=== PATIENT | female | born 1935 | race Hispanic/Latino ===

== ENCOUNTER 2017-07-30 11:55 | Emergency (ER) | payer MEDICARE ==
[~2017-07-30] VITALS: Ht 160 cm; Wt 72.6 kg
[2017-07-30 13:25] VITALS: BP 125/57
== END 2017-07-30 14:24 | disposition home or self-care (01) ==
LOC: ER 11:55
DX: B36.0 Pityriasis versicolor (principal); E11.9 Type 2 diabetes mellitus without complications
CPT/HCPCS: 99282

== ENCOUNTER 2017-12-12 16:41 | Emergency (ER) | payer OTHER, MEDICARE ==
[~2017-12-12] VITALS: Ht 160 cm; Wt 72.6 kg
[2017-12-12 18:16] LABS: BASOPHILS % 0.2 % (0.0-1.0); HEMOGLOBIN 13.8 g/dL (12.0-16.0); LYMPHOCYTES # (AUTO) 1.3 (1.0-3.2); LYMPHOCYTES % 10.7 % (18.0-39.1); MEAN CORPUSCULAR HEMOGLOBIN 30.5 pg (28-32); MEAN CORPUSCULAR HGB CONC 33.7 g/dL (31-35); MEAN CORPUSCULAR VOLUME 90.5 fL (81-99); MONOCYTES # (AUTO) 0.4 (0.2-0.8); MONOCYTES % 3.5 % (4.4-11.3); NEUTROPHILS # (AUTO) 10.4 (2.1-6.9); NEUTROPHILS % 85.2 % (38.7-80.0); PLATELET COUNT 281 x10e3/uL (140-360); RED BLOOD COUNT 4.53 x10e6/uL (3.6-5.1); RED CELL DISTRIBUTION WIDTH 12.7 % (11.7-14.4)
[2017-12-12 18:23] LABS: INR 1.04; PARTIAL THROMBOPLASTIN TIME 26.9 seconds (23.8-35.5); PROTHROMBIN TIME 12.8 seconds (11.9-14.5)
[2017-12-12 18:33] LABS: ALANINE AMINOTRANSFERASE 16 IU/L (0-55); ALBUMIN 3.9 g/dL (3.5-5.0); ALBUMIN/GLOBULIN RATIO 1.1 (0.8-2.0); ALKALINE PHOSPHATASE 111 IU/L (40-150); ANION GAP 15.1 mmol/L (8-16); BLOOD UREA NITROGEN 17 mg/dL (7-26); BUN/CREATININE RATIO 21 (6-25); CALCIUM 10.2 mg/dL (8.4-10.2); CARBON DIOXIDE 24 mmol/L (22-29); CHLORIDE 104 mmol/L (98-107); CREATINE KINASE 79 IU/L (29-168); EST GLOMERULAR FILTRATION RATE > 60 ML/MIN (60-); GLUCOSE 182 mg/dL (74-118); POTASSIUM 4.1 mmol/L (3.5-5.1); SODIUM 139 mmol/L (136-145)
--- NOTE | 2017-12-12 18:37 | Diagnostic Imaging Report ---
PROCEDURE: A single AP view of the chest. COMPARISON: None. INDICATIONS: dizziness FINDINGS: Lines/tubes: None. Lungs: The lungs are moderately inflated. Bibasilar atelectasis. There is no evidence of pneumonia or pulmonary edema. Pleura: There is no pleural effusion or pneumothorax. Heart and mediastinum: The heart and the mediastinum are unremarkable. Bones: No acute bony abnormality. IMPRESSION: No acute cardiopulmonary disease. Dictated by: Niko Bautista M.D. on 12/12/2017 at 18:38 Electronically approved by: Niko Bautista M.D. on 12/12/2017 at 18:38
[2017-12-12 18:43] LABS: BILIRUBIN,URINE NEGATIVE (NEGATIVE); CLARITY,URINE TURBID (CLEAR); COLOR,URINE YELLOW (YELLOW); KETONES,URINE NEGATIVE (NEGATIVE); LEUKOCYTE ESTERASE ,URINE NEGATIVE (NEGATIVE); NITRITE,URINE POSITIVE (NEGATIVE); PROTEIN,URINE DIPSTICK NEGATIVE (NEGATIVE); URINE UROBILINOGEN 0.2 mg/dL (0.2 - 1)
--- NOTE | 2017-12-12 18:51 | Diagnostic Imaging Report ---
History:Strokelike symptoms Comparison studies:None Technique: Axial images were obtained from the skull base to the vertex. Coronal and sagittal images reconstructed from the axial data. Intravenous contrast: None Findings: Scalp/skull: No abnormalities. Extra-axial spaces: No masses. No fluid collections. Brain sulci: Mildly prominent. Ventricles: Mild compensatory dilatation. No hydrocephalus. Parenchyma: Confluent and scattered hypodensities in the supratentorial white matter are small vessel ischemic changes. No masses, hemorrhage, acute or chronic cortical vascular insults. Sellar/suprasellar region: No abnormalities. Craniocervical junction: Patent foramen magnum. No Chiari one malformation. Incidental findings: Atherosclerotic calcifications in the carotid siphons . Impression: No acute abnormalities. Chronic findings: 1. Mild generalized volume loss. 2. Mild supratentorial white matter small vessel ischemic changes. A preliminary report was given by Neuroradiology fellow Dr. Ch at 6:50 PM on 12/12/2017. I have reviewed the study and agree with the findings in the preliminary report. Signed by: Dr. Irasema Berg M.D. on 12/12/2017 7:49 PM
[2017-12-12 18:58] LABS: RBC,URINE 0-5 /HPF (0-5)
[2017-12-12 18:59] LABS: BACTERIA,URINE MANY /HPF; CYSTINE CRYSTALS,URINE FEW; EPITHELIAL CELLS,URINE RARE /LPF; MUCUS,URINE MODERATE (RARE)
[2017-12-12] MEDS ORDERED: METFORMIN HCL500 M2 PO (20:14)
[2017-12-12] MEDS ORDERED: MECLIZINE HCL12.5 MG PO (20:14)
[2017-12-12] MEDS ORDERED: LEVOTHYROXINE50 MCG PO (20:14)
[2017-12-12] MEDS ORDERED: ASPIRIN EC81 MG PO (20:14)
[2017-12-12] MEDS ORDERED: D3-5050000 UNIT PO (20:14)
[2017-12-12] MEDS ORDERED: PRAVASTATIN SOD20 MG PO (20:14)
[2017-12-12] MEDS ORDERED: NAPROXEN250 MG PO (20:14)
[2017-12-12] MEDS ORDERED: CEFTRIAXONE SOD 1 GM VIAL IV ONE (21:00)
[2017-12-12 21:42] VITALS: BP 146/73
[2017-12-12] MEDS ORDERED: LEVAQUIN250 MG PO (21:46)
== END 2017-12-12 22:11 | disposition home or self-care (01) ==
LOC: ER 16:41
DX: R42 Dizziness and giddiness (principal); N30.91 Cystitis, unspecified with hematuria
CPT/HCPCS: 36415; 70450; 71045; 80053; 81001; 82550; 82553; 84484; 85025; 85610; 85730; 93005; 99284; J0696

== ENCOUNTER 2020-02-08 15:36 | Inpatient (IN) | payer MEDICARE, OTHER ==
[~2020-02-08] VITALS: Ht 160 cm; Wt 72.6 kg
--- NOTE | 2020-02-08 16:42 | Emergency Department Note ---
History of Present Illnes History of Present Illness Chief Complaint: Respiratory History of Present Illness This is a 84 year old female with one week h/o of ST, abd, diarrheal illness of 10 days duration denies fever. Historian: Patient Arrival Mode: Car Past Medical/Family History Physician Review I have reviewed the patient's past medical and family history. Any updates have been documented here. Past Medical History Recent Fever: No Clinical Suspicion of Infectio: No New/Unexplained Change in Ment: No Past Medical History: Hypertension, Diabetes, Hypothyroidism, Hyperlipedemia Other Medical History: HIGH CHOLESTEROL Past Surgical History: Appendectomy, Knee Replacement Family History Family history of heart diseas: No Other Last Tetanus: UTD Physical Exam Related Data Allergies: Coded Allergies: No Known Allergies (Unverified , 12/12/17) Triage Vital Signs Vital Signs Date Time Temp Pulse Resp B/P (MAP) Pulse Ox O2 Delivery O2 Flow Rate FiO2 02/08/20 16:32 98.5 74 129/72 93 Physical Exam CONSTITUTIONAL Constitutional: Present ill appearing HENT HENT: Present normocephalic, Present atraumatic, Present oropharynx clear/moist, Present nose normal HENT L/R: Present left ext ear normal, Present right ext ear normal EYES Eyes: Reports PERRL, Reports conjunctivae normal NECK Neck: Present ROM normal PULMONARY Pulmonary: Present effort normal, Present breath sounds normal CARDIOVASCULAR Cardiovascular: Present regular rhythm, Present heart sounds normal, Present capillary refill normal, Present normal rate GASTROINTESTINAL Abdominal: Present soft, Present nontender, Present bowel sounds normal GENITOURINARY Genitourinary: Present exam deferred SKIN Skin: Present warm, Present dry MUSCULOSKELETAL Musculoskeletal: Present ROM normal NEUROLOGICAL Neurological: Present alert, Present oriented x 3, Present no gross motor or sensory deficits PSYCHOLOGICAL Psychological: Present mood/affect normal, Present judgement normal Results Imaging Imaging results reviewed: Yes Impressions [place] [address] Patient Name: KATIE AQUINO MR #: [id number] : 1935 Age/Sex: 84/F Req #: [id number] Adm Physician: Ordered by: SILVA PACHECO DO Report #: [id number] Location: ER Room/Bed: ___ Procedure: [id number] CT/CT CHEST WO Exam Date: 02/08/20 Exam Time: 1639 REPORT STATUS: Signed EXAM: CT Chest, Abdomen and Pelvis WITHOUT contrast INDICATION: Chest pain. Dyspnea. Abdominal pain. COMPARISON: None. TECHNIQUE: Chest, abdomen and pelvis were scanned utilizing a multidetector helical scanner from the lung apex to the pubic symphysis without administration of IV contrast. Absence of intravenous contrast decreases sensitivity for detection of focal lesions and vascular pathology. Coronal and sagittal reformations were obtained. Routine protocol was performed. IV CONTRAST: None. ORAL CONTRAST: Water RADIATION DOSE: Total DLP: 948.14 mGy*cm Estimated effective dose: (DLP x 0.015 x size factor) mSv COMPLICATIONS: None FINDINGS: LINES and TUBES: None. LUNGS AND AIRWAYS: Patchy groundglass density in the inferior right upper lobe, right middle lobe and bilateral lung bases with PLEURA: The pleural spaces are clear. HEART AND MEDIASTINUM: The thyroid gland is normal. No mediastinal, hilar or axillary lymphadenopathy. The heart is normal in size.. There is no pericardial effusion. There are mild atherosclerotic calcifications in the aorta and coronary arteries. HEPATOBILIARY: No focal hepatic lesions. No biliary ductal dilation. GALLBLADDER: Not visualized. SPLEEN: No splenomegaly. PANCREAS: No focal masses or ductal dilatation. ADRENALS: No adrenal nodules KIDNEYS/URETERS: No hydronephrosis. No cystic or solid mass lesions. No stones. GI TRACT: No abnormal distention, wall thickening, or evidence of bowel obstruction. There are diverticula within the colon without evidence of diverticulitis. Appendix is normal. PELVIC ORGANS/BLADDER: Heterogeneity of the uterus may be related to the presence of small leiomyomata with consultations of the uterine arteries. Broad-based right sided diverticulum of the urinary bladder. Mild diffuse wall thickening of the urinary bladder may be part related to underdistention. LYMPH NODES: No lymphadenopathy. VESSELS: There is mild atherosclerotic disease in the aorta and major arterial branches. PERITONEUM / RETROPERITONEUM: No free air or fluid. Increased density in the root of the mesentery fat, small associated with mildly prominent mesenteric lymph nodes, suggestive of "gab mesentery". BONES: There are degenerative changes in the thoracolumbar spine. SOFT TISSUES: Unremarkable. IMPRESSION: 1. Patchy groundglass densities in the lower lobes, and to a lesser degree right upper and middle lobes suggestive of multifocal pneumonitis. 2. Mild gab mesentery is a nonspecific finding, however, be associated with infectious, inflammatory and neoplastic etiologies. 3. Diverticulosis coli without acute diverticulitis. Signed by: Dr. Sandy Pineda M.D. on 02/08/2020 7:10 PM Dictated By: JASMYNE PINEDA MD, MD 09 Transcribed By: ROSETTA on 02/08/201909 COPY TO: SILVA PACHECO DO~ Assessment & Plan Last Vital Signs Date Time Temp Pulse Resp B/P (MAP) Pulse Ox O2 Delivery O2 Flow Rate FiO2 02/08/20 16:32 98.5 74 129/72 93 Home Meds Reported Medications Levofloxacin (LEVAQUIN) 250 Mg Tablet, 250 MG PO DAILY, #30 TAB 12/12/17 Cholecalciferol (Vitamin D3) (D3-50) 50,000 Unit Capsule, 41613 UNITS PO WEEKLY 12/12/17 Metformin Hcl (METFORMIN HCL ER) 500 Mg Tab.er.24, 750 MG PO DAILY, #60 TAB 12/12/17 Aspirin (ASPIRIN EC) 81 Mg Tablet.dr, 81 MG PO DAILY, #30 TAB 12/12/17 Levothyroxine Sodium (LEVOTHYROXINE SODIUM) 50 Mcg Tablet, 25 MCG PO DAILY, #30 TAB 18 Naproxen (NAPROXEN) 250 Mg Tablet, 500 MG PO Q12H PRN for PAIN, TAB 12/12/17 Meclizine Hcl (MECLIZINE HCL) 12.5 Mg Tablet, 12.5 MG PO TID PRN for DIZZINESS, TAB 12/12/17 Pravastatin Sodium (PRAVASTATIN SODIUM) 20 Mg Tablet, 20 MG PO DAILY 12/12/17 SILVA PACHECO DO Feb 08, 2020 16:42
[2020-02-08 17:10] LABS: CLARITY,URINE SL CLOUDY (CLEAR); COLOR,URINE ORANGE (YELLOW)
[2020-02-08 17:11] LABS: BILIRUBIN,URINE SMALL (NEGATIVE); KETONES,URINE 1+ (NEGATIVE); LEUKOCYTE ESTERASE ,URINE LARGE (NEGATIVE); NITRITE,URINE NEGATIVE (NEGATIVE); PROTEIN,URINE DIPSTICK 2+ (NEGATIVE); URINE UROBILINOGEN 4 mg/dL (0.2 - 1)
[2020-02-08 17:22] LABS: BACTERIA,URINE MANY /HPF; EPITHELIAL CELLS,URINE MODERATE /LPF; RENAL EPITHELIAL CELLS,URINE FEW
--- NOTE | 2020-02-08 19:13 | Diagnostic Imaging Report ---
EXAM: CT Chest, Abdomen and Pelvis WITHOUT contrast INDICATION: Chest pain. Dyspnea. Abdominal pain. COMPARISON: None. TECHNIQUE: Chest, abdomen and pelvis were scanned utilizing a multidetector helical scanner from the lung apex to the pubic symphysis without administration of IV contrast. Absence of intravenous contrast decreases sensitivity for detection of focal lesions and vascular pathology. Coronal and sagittal reformations were obtained. Routine protocol was performed. IV CONTRAST: None. ORAL CONTRAST: Water RADIATION DOSE: Total DLP: 948.14 mGy*cm Estimated effective dose: (DLP x 0.015 x size factor) mSv COMPLICATIONS: None FINDINGS: LINES and TUBES: None. LUNGS AND AIRWAYS: Patchy groundglass density in the inferior right upper lobe, right middle lobe and bilateral lung bases with PLEURA: The pleural spaces are clear. HEART AND MEDIASTINUM: The thyroid gland is normal. No mediastinal, hilar or axillary lymphadenopathy. The heart is normal in size.. There is no pericardial effusion. There are mild atherosclerotic calcifications in the aorta and coronary arteries. HEPATOBILIARY: No focal hepatic lesions. No biliary ductal dilation. GALLBLADDER: Not visualized. SPLEEN: No splenomegaly. PANCREAS: No focal masses or ductal dilatation. ADRENALS: No adrenal nodules KIDNEYS/URETERS: No hydronephrosis. No cystic or solid mass lesions. No stones. GI TRACT: No abnormal distention, wall thickening, or evidence of bowel obstruction. There are diverticula within the colon without evidence of diverticulitis. Appendix is normal. PELVIC ORGANS/BLADDER: Heterogeneity of the uterus may be related to the presence of small leiomyomata with consultations of the uterine arteries. Broad-based right sided diverticulum of the urinary bladder. Mild diffuse wall thickening of the urinary bladder may be part related to underdistention. LYMPH NODES: No lymphadenopathy. VESSELS: There is mild atherosclerotic disease in the aorta and major arterial branches. PERITONEUM / RETROPERITONEUM: No free air or fluid. Increased density in the root of the mesentery fat, small associated with mildly prominent mesenteric lymph nodes, suggestive of "gab mesentery". BONES: There are degenerative changes in the thoracolumbar spine. SOFT TISSUES: Unremarkable. IMPRESSION: 1. Patchy groundglass densities in the lower lobes, and to a lesser degree right upper and middle lobes suggestive of multifocal pneumonitis. 2. Mild gab mesentery is a nonspecific finding, however, be associated with infectious, inflammatory and neoplastic etiologies. 3. Diverticulosis coli without acute diverticulitis. Signed by: Dr. Sandy Pineda M.D. on 02/08/2020 7:10 PM
[2020-02-08 21:27] LABS: BASOPHILS % 0.3 % (0.0-1.0); EOSINOPHILS % 0.2 % (0.0-6.0); HEMATOCRIT 40.3 % (34.2-44.1); HEMOGLOBIN 13.3 g/dL (12.0-16.0); LYMPHOCYTES % 8.7 % (18.0-39.1); MEAN CORPUSCULAR HEMOGLOBIN 29.7 pg (28-32); MONOCYTES # (AUTO) 0.5 (0.2-0.8); MONOCYTES % 4.3 % (4.4-11.3); NEUTROPHILS # (AUTO) 9.5 (2.1-6.9); NEUTROPHILS % 86.2 % (38.7-80.0); PLATELET COUNT 257 x10e3/uL (140-360); RED BLOOD COUNT 4.48 x10e6/uL (3.6-5.1); RED CELL DISTRIBUTION WIDTH 13.1 % (11.7-14.4)
[2020-02-08 21:44] LABS: ALANINE AMINOTRANSFERASE 16 IU/L (0-55); ALBUMIN 3.3 g/dL (3.5-5.0); ALBUMIN/GLOBULIN RATIO 0.8 (0.8-2.0); ALKALINE PHOSPHATASE 127 IU/L (40-150); ANION GAP 14.1 mmol/L (8-16); BLOOD UREA NITROGEN 16 mg/dL (7-26); BUN/CREATININE RATIO 14 (6-25); CALCIUM 9.6 mg/dL (8.4-10.2); CARBON DIOXIDE 24 mmol/L (22-29); CHLORIDE 98 mmol/L (98-107); CREATINE KINASE 27 IU/L (29-168); CREATININE, SERUM 1.14 mg/dL (0.57-1.11); EST GLOMERULAR FILTRATION RATE 45 ML/MIN (60-); GLUCOSE 268 mg/dL (74-118); LIPASE 21 U/L (8-78); POTASSIUM 4.1 mmol/L (3.5-5.1); SODIUM 132 mmol/L (136-145)
[2020-02-08] MEDS ORDERED: ZOLPIDEM TARTRATE 5 MG TAB PO PRN (22:15)
[2020-02-08] MEDS ORDERED: ALBUTEROL SULFATE HFA 8GM INHALATION AEROSOL INH PRN (22:15)
[2020-02-08] MEDS ORDERED: ACETAMINOPHEN 325 MG TAB PO PRN (22:15)
[2020-02-08] MEDS ORDERED: DEXAMETHASONE SOD PHOS 10 MG/1 ML VIAL IV ONE (22:15)
[2020-02-08] MEDS ORDERED: ONDANSETRON HCL INJ 2MG/ML 2ML 2 MG/ML VIAL IV PRN (22:15)
[2020-02-08] MEDS ORDERED: SODIUM CHLORIDE 0.9% 1000ML 1,000 ML IV ONE (22:15)
[2020-02-08] MEDS ORDERED: DEXTROSE 50% SYRINGE 50 ML IV PRN (22:30)
[2020-02-08] MEDS: CEFTRIAXONE SOD 1 GM/NS 50 ML 50 ML IV SCH (22:44)
[2020-02-08 23:20] VITALS: BP 121/48
--- NOTE | 2020-02-08 23:20 | NUR ---
patient is a new admit that arrived via wheelchair. patient is awake and talking. patient has been transferred into the bed. bed is in the lowest position and call light is within reach. will continue to monitor patient.
--- NOTE | 2020-02-08 23:30 | NUR ---
patient blood sugar is 253. MD notified. received new order for one time dose of 5 units humalog.
[2020-02-08] MEDS ORDERED: SODIUM CHLORIDE 0.9% 250ML 250 ML ONE (23:43)
[2020-02-09] VITALS (9 sets, daily range): BP systolic 94–200; BP diastolic 34–112
[2020-02-09] MEDS ORDERED: INSULIN LISPRO 100 UNIT/1 ML 3ML VIAL SQ ONE
[2020-02-09] MEDS: AZITHROMYCIN 500MG/NS 250 ML 250 ML IV SCH ×2 (00:18→23:15)
--- NOTE | 2020-02-09 02:32 | Consultation ---
DATE OF CONSULTATION: Pulmonary Critical Care Consultation CHIEF COMPLAINT: Fever, nausea, and dyspnea. HISTORY OF PRESENT ILLNESS: The patient is an 84-year-old woman. She reports fever and nausea for 8 days. She had a small amount of diarrhea, but no vomiting. She reports some shortness of breath and an occasional cough. She also has some fevers. PAST SURGICAL HISTORY: Noncontributory. PAST MEDICAL HISTORY: 1. Hypothyroidism. 2. Diabetes, not requiring insulin. 3. The patient denies any asthma or COPD. 4. No prior heart disease. ALLERGIES: NO KNOWN DRUG ALLERGIES. SOCIAL HISTORY: The patient is not a smoker or drinker. FAMILY HISTORY: Noncontributory. REVIEW OF SYSTEMS: The patient is reporting fevers. She has some malaise. She reports some dyspnea and occasional cough. She also reports some nausea. She has no vomiting. She has diarrhea. She has no leg edema. She does not complain of any neurological abnormalities. PHYSICAL EXAMINATION: VITAL SIGNS: Blood pressure is 158/61, pulse is 70, and saturation is 95%. She is afebrile. HEENT: Shows no facial swelling or erythema. CARDIAC: Reveals regular rate and rhythm with normal S1 and S2. LUNGS: Auscultation of lungs reveals rhonchorous breath sounds bilaterally. There is no wheezing. ABDOMEN: Soft and nontender. There is no rebound or guarding. EXTREMITIES: Show no leg edema or calf tenderness. There is no cyanosis or clubbing. SKIN: Shows no rashes. NEUROLOGICAL: Shows no focal abnormalities. RADIOGRAPHIC DATA: CT scan of the chest shows patchy ground-glass densities in the lower lobes. CT scan of the abdomen shows some abnormalities in the mesentery of unclear etiology as well as some diverticulosis. IMPRESSION: 1. Viral pneumonia and coronavirus disease 2019 infection. 2. Diabetes. 3. Nausea and abdominal distention. 4. Acute kidney injury. PLAN: 1. IV fluids. 2. Dexamethasone. 3. Azithromycin and Rocephin. 4. Tylenol as needed. 5. Protonix. 6. GI evaluation. 7. Repeat BUN and creatinine and electrolytes tomorrow. MD ADI Romero/FLASH /[id number]
[2020-02-09 05:46] LABS: BASOPHILS % 0.1 % (0.0-1.0); HEMATOCRIT 38.9 % (34.2-44.1); HEMOGLOBIN 12.7 g/dL (12.0-16.0); LYMPHOCYTES # (AUTO) 0.7 (1.0-3.2); LYMPHOCYTES % 6.3 % (18.0-39.1); MEAN CORPUSCULAR HEMOGLOBIN 29.7 pg (28-32); MEAN CORPUSCULAR HGB CONC 32.6 g/dL (31-35); MEAN CORPUSCULAR VOLUME 91.1 fL (81-99); MONOCYTES # (AUTO) 0.1 (0.2-0.8); MONOCYTES % 1.2 % (4.4-11.3); NEUTROPHILS # (AUTO) 9.9 (2.1-6.9); PLATELET COUNT 262 x10e3/uL (140-360); RED BLOOD COUNT 4.27 x10e6/uL (3.6-5.1); RED CELL DISTRIBUTION WIDTH 12.8 % (11.7-14.4)
[2020-02-09 05:52] LABS: ALBUMIN/GLOBULIN RATIO 0.8 (0.8-2.0); ANION GAP 12.6 mmol/L (8-16); CALCIUM 9.1 mg/dL (8.4-10.2); CREATININE, SERUM 1.04 mg/dL (0.57-1.11); POTASSIUM 4.6 mmol/L (3.5-5.1)
[2020-02-09] MEDS ORDERED: INSULIN REGULAR, HUMAN 100 UNIT/1 ML 3ML VIAL SQ SCH (07:30)
[2020-02-09] MEDS ORDERED: DEXAMETHASONE SOD PHOS 10 MG/1 ML VIAL IV ONE (09:00)
[2020-02-09] MEDS: LEVOTHYROXINE SODIUM 50 MCG TAB PO SCH (10:05)
[2020-02-09] MEDS: PRAVASTATIN 20 MG TAB PO SCH (10:05)
[2020-02-09] MEDS: ASPIRIN 81 MG ENTERIC COATED PO SCH (10:05)
[2020-02-09] MEDS: FAMOTIDINE 20 MG/2 ML VIAL IV SCH ×2 (10:05→16:28)
[2020-02-09 11:07] LABS: EOSINOPHILS % (MANUAL) 1 % (0-7); LYMPHOCYTES % (MANUAL) 9 % (19-48); MONOCYTES % (MANUAL) 1 % (3.4-9.0); NEUTROPHILS % (MANUAL) 88 % (40-74); PLATELET ESTIMATE ADEQUATE; PLATELET MORPHOLOGY COMMENT NORMAL; RBC MORPHOLOGY COMMENT NORMAL
[2020-02-09] MEDS: INSULIN REGULAR, HUMAN 100 UNIT/1 ML 3ML VIAL SQ SCH ×3 (12:16→21:21)
[2020-02-09] MEDS ORDERED: ENOXAPARIN 30 MG/0.3 ML SYR SC SCH (17:00)
--- NOTE | 2020-02-09 18:29 | Progress Note ---
DATE: SUBJECTIVE: The patient feels better. She is having less abdominal pain. She ate something. She still has some pressure in her chest. PHYSICAL EXAMINATION: VITAL SIGNS: Blood pressure is 108/50, saturation is 95%, pulse is 59. HEENT: Shows no facial swelling or erythema. CARDIAC: Reveals regular rate and rhythm with a normal S1, S2. LUNGS: Auscultation of lungs reveals rhonchorous breath sounds bilaterally. There is no wheezing. ABDOMEN: Soft and nontender. There is no rebound or guarding. EXTREMITIES: Shows no leg edema or calf tenderness. There is no cyanosis or clubbing. SKIN: Shows no rashes. LABORATORY DATA: BUN to creatinine ratio is normal. Other electrolytes within normal limits. Sodium is 137 and the glucose is 276. The albumin is 3. RADIOGRAPHIC DATA: CT of the chest shows bilateral infiltrates, suggestive of pneumonia. IMPRESSION: 1. Viral pneumonia and COVID-19 infection. 2. Diabetes. 3. Acute kidney injury. 4. Nausea. 5. Abdominal distention. PLAN: 1. Increase insulin to control blood sugars. 2. Continue antibiotics. 3. Tylenol as needed. 4. Judicious use of IV fluids. Doe Kearney MD [facility]/MODL /[id number]
--- NOTE | 2020-02-09 20:00 | NUR ---
ROUTINE VITAL CHECK PATIENT SEEN AWAKE RESTING, DIALYSIS CURRENTLY STARTED, RIGHT CHEST DIALYSIS IJ ACCESSED FOR DIALYSIS PT TOLERATING WELL, SITE TENDER TO TOUCH, DRSG C/D/I, REPORT BLOOD PRESSURE 207/112, ASSESSED PATIENT BLOOD PRESSURE CURRENTLY GRADUALLY DECREASING, CURRENTLY SBP 170, WILL CONTINUE TO MONITOR
--- NOTE | 2020-02-09 20:05 | History and Physical ---
PRIMARY CARE PHYSICIAN: None. CHIEF COMPLAINT: Shortness of breath, abdominal pain, and dizziness. HISTORY OF PRESENT ILLNESS: This is an 84-year-old female, presented to the ER with complaints of nausea, vomiting, shortness of breath, cough for the past few days. She denies any chest pain, hemoptysis, dysuria, diarrhea. History is limited due to language barrier and reports is feeling fine now. In the ER, CT abdomen and pelvis showed patchy ground-glass densities in the right upper and middle lobes, suggestive of multifocal pneumonitis, diverticulosis without acute diverticulitis, and mild gab mesentery is a nonspecific finding. However, can be associated with infectious or inflammatory and neoplastic etiology. CTA chest, no PE. She is admitted for further evaluation. PAST MEDICAL HISTORY: 1. Diabetes. 2. Hypothyroidism. SOCIAL HISTORY: Denies any tobacco, alcohol, or illicit drug use. FAMILY HISTORY: Unknown. SURGICAL HISTORY: She had cholecystectomy and bilateral knee surgery. ALLERGIES: NO KNOWN DRUG ALLERGIES. REVIEW OF SYSTEMS: Twelve-system reviewed and negative except that noted in HPI. PHYSICAL EXAMINATION: VITAL SIGNS: Temperature 98.2, pulse is 56, respirations 16, blood pressure 109/78, pulse ox 93% on room air. GENERAL: No acute distress. HEENT: Normocephalic, atraumatic. NECK: Supple. LUNGS: With decreased breath sounds. CARDIOVASCULAR: Regular rate and rhythm. GI: Soft, nontender, obese. NEUROLOGIC: Alert, awake, and oriented x3. MUSCULOSKELETAL: Moves all extremities. SKIN: Dry. PSYCH: Calm. LABORATORY DATA: WBC 10.71, hemoglobin 4.7, hematocrit 38.9, platelets 262. Sodium 137, potassium 4.6. BUN is 14, creatinine 1.14 now 1.01, estimated GFR is 50. AST 21, ALT 15. BNP is 59.5. Urine, orange with large leukocyte esterase, WBCs, and bacteria. COVID PCR is positive. CT chest, abdomen and pelvis shows patchy ground-glass densities, suggestive of multifocal pneumonia, mild gab mesentery, advanced specific finding, and diverticulosis without acute diverticulitis. IMPRESSION AND PLAN: 1. Acute respiratory distress due to coronavirus disease 2019. She is started on Rocephin, azithromycin, and inhaler as needed. 2. Acute kidney injury. Creatinine improved with IV fluid condition. Now tolerating p.o. 3. Diabetes. We will continue with sliding scale insulin. 4. Hypothyroidism. We will resume home levothyroxine at 25 mcg p.o. daily. 5. Deep venous thrombosis prophylaxis. Lovenox. Plan is to continue IV antibiotics and supportive therapy. Further recommendations per ID and mechanical intern. Dictated by KEITH Agustin Florentin Ash MD [facility]/MODL /[id number]
[2020-02-09] MEDS ORDERED: INSULIN GLARGINE 100 UNITS/ML VIAL SQ SCH (21:00)
[2020-02-09] MEDS: CEFTRIAXONE SOD 1 GM/NS 50 ML 50 ML IV SCH (21:45)
--- NOTE | 2020-02-09 22:30 | NUR ---
PATIENT GIVEN ORAL HYPERTENSION MEDICATION, DIALYSIS COMPLETED 3 LITERS REMOVED VIA RIGHT CVC, PATIENT BLOOD PRESSURE REMAIN HIGH SBP 160'S REPORT LAST VITALS TAKEN BY TELEPHOTO ENGINEER, PATIENT LYING COMFORTABLY IN BED IN DISTRESS NOTED, WILL CONTINUE TO MONITOR
--- NOTE | 2020-02-09 22:45 | Consultation ---
DATE OF CONSULTATION: REASON FOR CONSULTATION: Fever, shortness of breath, nausea. HISTORY OF PRESENT ILLNESS: This is an 84-year-old female, who has been sick for 8 days, not feeling well, a little bit feverish, some shortness of breath, some cough. The patient came to the emergency room because she was not feeling well. There was also some nausea. The patient came, her COVID-19 came back positive. She is being admitted. LABORATORY DATA: White count of 10.7, hemoglobin 12, hematocrit 38. Sodium 132, potassium 4.1, creatinine 1.14, came down at 1.04, glucose of 276. PHYSICAL EXAMINATION: GENERAL: Currently alert, oriented, does not seem to be in acute distress. VITAL SIGNS: Stable. Currently afebrile. The patient is 96% on nasal cannula. HEENT: She is not icteric. NECK: Supple. CHEST: Crackles bilateral. COR: S1 and S2. ABDOMEN: Soft. IMPRESSION AND PLAN: Coronavirus disease-19, clinically seems to be stable. Agree with Rocephin and azithromycin. I do not think she is ready for dexamethasone, she is not hypoxemic. Low dose of anticoagulation, but it could be changed to oral antibiotic and discharge soon. We will discuss with the medical team. MD KARYN Siegel/FLASH /[id number]
[2020-02-10] VITALS: BP 121/51
[2020-02-10 04:00] VITALS: BP 133/51
[2020-02-10 05:06] LABS: BASOPHILS % 0.2 % (0.0-1.0); HEMATOCRIT 36.2 % (34.2-44.1); HEMOGLOBIN 11.9 g/dL (12.0-16.0); LYMPHOCYTES % 8.4 % (18.0-39.1); MEAN CORPUSCULAR HEMOGLOBIN 29.7 pg (28-32); MEAN CORPUSCULAR HGB CONC 32.9 g/dL (31-35); MEAN CORPUSCULAR VOLUME 90.3 fL (81-99); MONOCYTES # (AUTO) 0.6 (0.2-0.8); MONOCYTES % 4.9 % (4.4-11.3); NEUTROPHILS # (AUTO) 10.6 (2.1-6.9); NEUTROPHILS % 86.1 % (38.7-80.0); PLATELET COUNT 301 x10e3/uL (140-360); RED BLOOD COUNT 4.01 x10e6/uL (3.6-5.1); RED CELL DISTRIBUTION WIDTH 12.5 % (11.7-14.4)
[2020-02-10 05:32] LABS: ALANINE AMINOTRANSFERASE 15 IU/L (0-55); ALBUMIN/GLOBULIN RATIO 0.8 (0.8-2.0); ALKALINE PHOSPHATASE 116 IU/L (40-150); ANION GAP 13.1 mmol/L (8-16); BLOOD UREA NITROGEN 17 mg/dL (7-26); BUN/CREATININE RATIO 20 (6-25); CALCIUM 9.6 mg/dL (8.4-10.2); CARBON DIOXIDE 22 mmol/L (22-29); CHLORIDE 106 mmol/L (98-107); CREATININE, SERUM 0.85 mg/dL (0.57-1.11); EST GLOMERULAR FILTRATION RATE > 60 ML/MIN (60-); GLUCOSE 232 mg/dL (74-118); POTASSIUM 4.1 mmol/L (3.5-5.1); SODIUM 137 mmol/L (136-145)
[2020-02-10 06:07] VITALS: BP 133/51
--- NOTE | 2020-02-10 07:00 | NUR ---
RECEIVED SHIFT REPORT FROM OFF GOING NIGHT NURSE. PATIENT IN STABLE CONDITION, NO S/S OF DISTRESS NOTED. NO PAIN VOICED. TELEMETRY APPLIED. IV SITE ASYMPTOMATIC AND PATENT TRANSPARENT DRESSING APPLIED C/D/I. BED IN LOWEST POSITION AND LOCKED. CALL LIGHT WITHIN REACH.
--- NOTE | 2020-02-10 07:24 | NUR ---
BSSR GIVEN TO DAYSHIFT RN, UPDATE WITH PLAN OF CARE
[2020-02-10] MEDS: INSULIN REGULAR, HUMAN 100 UNIT/1 ML 3ML VIAL SQ SCH ×2 (07:30→11:30)
[2020-02-10 08:47] VITALS: BP 153/80
[2020-02-10 08:58] VITALS: BP 153/80
[2020-02-10] MEDS: ASPIRIN 81 MG ENTERIC COATED PO SCH (09:00)
[2020-02-10] MEDS: PRAVASTATIN 20 MG TAB PO SCH (09:00)
[2020-02-10] MEDS: LEVOTHYROXINE SODIUM 50 MCG TAB PO SCH (09:00)
[2020-02-10] MEDS: FAMOTIDINE 20 MG/2 ML VIAL IV SCH (09:00)
--- NOTE | 2020-02-10 10:36 | Diagnostic Imaging Report ---
EXAMINATION: CHEST SINGLE (PORTABLE) INDICATION: Viral pneumonia COMPARISON: Chest CT 02/08/2020, chest radiograph 02/08/2020 FINDINGS: LINES/TUBES:None LUNGS:The lungs are well-inflated. Unchanged right greater than left hazy airspace opacities. PLEURA:No pleural effusion or pneumothorax. MEDIASTINUM:The cardiomediastinal silhouette appears unchanged in size and shape. BONES/SOFT TISSUES:No acute osseous injury. ABDOMEN:No free air under the diaphragm. IMPRESSION: Unchanged right greater than left lower lung hazy airspace opacities consistent with history of viral pneumonia. Signed by: Galina Espino MD on 02/10/2020 10:32 AM
[2020-02-10 11:12] VITALS: BP 145/58
--- NOTE | 2020-02-10 11:38 | Progress Note ---
DATE: SUBJECTIVE: Discussed with Dr. Houston in detail. Discussed with the nurse. The patient is seen with the nurse in her room. REVIEW OF SYSTEMS: Discussed with the daughter over the phone with a speaker on. No new complaints. The patient is doing well. The patient is off oxygen during my visit and saturation is about 92% to 97%. PHYSICAL EXAMINATION: VITAL SIGNS: Temperature 97.9, pulse 48, respiration 19, and blood pressure 152/80. GENERAL: Alert and oriented, sitting in a chair, no acute distress, off oxygen currently. CV: S1 and S2. CHEST: Equal expansion. Decreased breath sounds. No acute distress. ABDOMEN: Soft and nontender. No distention. HEENT: Moist. No pallor. No JVD. EXTREMITIES: Moves all. No acute distress. MEDICATIONS: Medication list reviewed and from ID point of view, the patient is on Zithromax, Rocephin, and Lovenox. LABORATORY STUDIES: White count of 12.36, hemoglobin 11.9, and platelet 305. Sodium 138, potassium 4.1, and creatinine 0.85. Serology; coronavirus PCR detected on 02/07. IMAGING: Chest x-ray from today, unchanged. Right greater than left lower lung hazy airspace opacities consistent with a history of viral pneumonia. ASSESSMENT AND PLAN: 1. COVID-19 infection. 2. Remains on Zithromax, Rocephin, and Lovenox. Not on dexamethasone yet. No significant hypoxemia. Continue to monitor the patient clinically and follow with the labs. Dictated by Victor Manuel Schultz PA-C (Al) Francois Houston MD /MODL /[id number]
[2020-02-10] MEDS ORDERED: ZINC SULFATE220 M1 PO (12:23)
[2020-02-10] MEDS ORDERED: ASCORBIC ACID500 MG PO (12:23)
[2020-02-10] MEDS ORDERED: AZITHROMYCIN250 MG PO (12:48)
--- NOTE | 2020-02-10 15:19 | Progress Note ---
DATE: SUBJECTIVE: The patient feels better. She is having less nausea and less abdominal discomfort. She has less cough and less dyspnea. PHYSICAL EXAMINATION: VITAL SIGNS: The patient is afebrile. The blood pressure is 150/58 and saturation is 92% on room air. HEENT: Shows no facial swelling or erythema. CARDIAC: Reveals regular rate and rhythm with normal S1 and S2. LUNGS: Auscultation of lungs reveals crackles at the bases. There is no wheezing. ABDOMEN: Soft and nontender. There is no rebound or guarding. EXTREMITIES: Shows no leg edema or calf tenderness. SKIN: Shows no rashes. LABORATORY DATA: White blood cell count is 12.3 and hemoglobin is 11.9. The platelet count is 301. BUN to creatinine ratio is 17 to 0.85. Other electrolytes within normal limits. RADIOGRAPHIC DATA: Chest x-ray shows right greater than left opacities. IMPRESSION: 1. Viral pneumonia and COVID-19 infection. 2. Diabetes. 3. Acute kidney injury. 4. Nausea. PLAN: 1. Continue antibiotics. 2. Continue insulin as needed. 3. Discharge home today. 4. Azithromycin and follow up with Infectious Disease. MD ADI Romero/FLASH /[id number]
--- NOTE | 2020-02-10 16:15 | NUR ---
PATIENT DISCHARGED HOME. PATIENT OFF THE UNIT @ 1605 VIA WHEELCHAIR ACCOMPANIED BY THE PCT TO THE LOBBY. PATIENT IN STABLE CONDITION, NO S/S OF DISTRESS NOTED. NO PAIN VOICED. IV ACCESS REMOVED WITH TIP INTACT. ALL PERSONAL ITEMS TAKEN WITH THE PATIENT. DISCHARGE TEACHING AND INSTRUCTIONS GIVEN TO THE PATIENT. PATIENT VERBALIZED UNDERSTANDING. PRESCRIPTIONS GIVEN TO THE PATIENT ALONG WITH PAPERWORK.
[2020-02-11] MEDS ORDERED: ASCORBIC ACID 500 MG TAB PO SCH (09:00)
[2020-02-11] MEDS ORDERED: ZINC SULFATE 220 MG CAP PO SCH (09:00)
--- NOTE | 2020-02-14 06:04 | Discharge Summary ---
PCP: None. FINAL DISCHARGE DIAGNOSES: 1. Acute respiratory distress due to coronavirus disease 2019. 2. Acute kidney injury. 3. Diabetes type 2. 4. Hypothyroidism. CONSULTANTS: 1. Dr. Kearney with Pulmonary. 2. Dr. Houston with Infectious Disease. PROCEDURES: None. HISTORY: Per HPI. HOSPITAL COURSE: This is an 84-year-old female, who presented to the ER with complaints of nausea, vomiting, shortness of breath, cough, and abdominal pain for the past few days. She was tested for COVID-19, which was positive. She was started on Rocephin, azithromycin, vitamin C, and zinc sulfate. CT of the abdomen and pelvis for her GI symptoms showed diverticulosis with no acute diverticulitis and showed patchy ground-glass densities in the lower lobes and to a lesser degree in the right upper and middle lobes, suggestive of multifocal pneumonitis. Chest x-ray repeated today, showed unchanged right greater than left lower lung hazy airspace opacities, consistent with history of viral pneumonia. She remained afebrile, tolerating diet, denies any nausea, vomiting, chest pain, or shortness of breath. She is saturating greater than 92% on room air, ambulating without any difficulties. We will discharge home today to self quarantine for 2 more weeks and follow up with Dr. Houston with ID in 2 weeks to repeat COVID test. PHYSICAL EXAMINATION: VITAL SIGNS: Temperature 98.1, pulse is 52, respirations 19, blood pressure 145/58, pulse ox 92% on room air. GENERAL: No acute distress. HEENT: Normocephalic and atraumatic. NECK: Supple. LUNGS: With decreased breath sound. CARDIOVASCULAR: Regular rate and rhythm. Sinus mukul. GI: Soft and nontender. NEUROLOGIC: Alert, awake, and oriented x3. MUSCULOSKELETAL: Moves all extremities. CONDITION AT DISCHARGE: Improved and stable. DISCHARGE MEDICATIONS: Please see medication reconciliation form. Z-Federico per ID recommendations and vitamin C and zinc sulfate in addition to her home medications. FOLLOWUP: Follow up with PCP and Dr. Houston in 2 weeks for repeat COVID-19 test. TIME SPENT: Total discharge time is 32 minutes. Dictated by KEITH Agustin YiMD JOAQUIN Ayers/MODL /[id number]
== END 2020-02-10 16:08 | disposition home or self-care (01) | DRG 177 ==
LOC: ER 17:47 → ERHOLD 21:02 → IMCU 23:03
PROVIDERS: ADMIT Internal Medicine; ATTEND Internal Medicine
DX: U07.1 COVID-19 (principal); J12.89 Other viral pneumonia; J80 Acute respiratory distress syndrome; N17.9 Acute kidney failure, unspecified; E11.9 Type 2 diabetes mellitus without complications; E03.9 Hypothyroidism, unspecified; R11.0 Nausea; I10 Essential (primary) hypertension
CPT/HCPCS: 36415; 71045; 71250; 74176; 80053; 81001; 82550; 82553; 82948; 83690; 83880; 84484; 85025; 87635; 93005; 93306; 99284; J0456; J0696; J1100; J1650; J1815; J1817; J7030; J7050

== ENCOUNTER → 2020-02-08 | Outpatient (CLI) | payer MEDICARE ==
[~2020-02-08] MED LIST: ASPIRIN EC81 MG PO; D3-5050000 UNIT PO; LEVAQUIN250 MG PO; LEVOTHYROXINE50 MCG PO; MECLIZINE HCL12.5 MG PO; METFORMIN HCL500 M2 PO; NAPROXEN250 MG PO; PRAVASTATIN SOD20 MG PO
--- NOTE | 2020-02-08 15:09 | Diagnostic Imaging Report ---
EXAM: CHEST 2 VIEWS DATE: 02/08/2020 2:45 PM INDICATION: Lower respiratory infection COMPARISON: None FINDINGS: The trachea is midline. There are patchy increased opacities present within the right lower lung zone suggestive of a infectious/inflammatory process. Minimal increased left basilar opacities noted suggestive of atelectasis. There is no evidence for pneumothorax or significant pleural effusion. The cardiomediastinal silhouette is within normal limits. There are degenerative changes of the visualized spine. No acute osseous abnormality is identified. IMPRESSION: Increased patchy opacities identified within the right lower lung zones suggestive of a infectious/inflammatory process such as pneumonia. Recommend follow-up examination after treatment to ensure resolution. Signed by: Dr. Adam Dorado MD on 02/08/2020 3:06 PM
== END ==
LOC: RAD 14:16
PROVIDERS: ATTEND Internal Medicine
DX: U07.1 COVID-19 (principal)
CPT/HCPCS: 71046

== ENCOUNTER 2020-02-15 16:37 | Inpatient (IN) | payer MEDICARE, OTHER ==
[~2020-02-15] VITALS: Ht 160 cm; Wt 72.6 kg
[~2020-02-15 16:37] MED LIST changes: +ASCORBIC ACID500 MG PO; +AZITHROMYCIN250 MG PO; +ZINC SULFATE220 M1 PO
[2020-02-15] MEDS ORDERED: AZITHROMYCIN 500MG/NS 250 ML 250 ML IV STA (17:16)
[2020-02-15] MEDS ORDERED: SODIUM CHLORIDE 0.9% 1000ML 1,000 ML IV STA ×2 (17:16)
--- NOTE | 2020-02-15 17:20 | Emergency Department Note ---
History of Present Illnes History of Present Illness Chief Complaint: COVID PUI History of Present Illness This is a 84 year old female . 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 Any updates have been documented here. Past Medical History Recent Fever: Yes Clinical Suspicion of Infectio: Yes New/Unexplained Change in Ment: No Past Medical History: Hypertension, Diabetes, Hypothyroidism, Hyperlipedemia Other Medical History: HIGH CHOLESTEROL Past Surgical History: Appendectomy, Knee Replacement Social History Any Illegal Drug Use: No TB Exposure/Symptoms: No Physically hurt or threatened: No Family History Family history of heart diseas: No Other Last Tetanus: UTD Any Pre-Existing Lines (PICC,: No Is patient up to date on immun: Yes Review of Systems ROS Narrative here 8 days ago dx with pneumonia not feeling better says she was told she is covid (+) denies cp c/o loss of appetite sob generalized weakness Review of Systems Constitutional: Reports chills, Reports weakness EENTM: Reports no symptoms Cardiovascular: Reports no symptoms Respiratory: Reports cough, Reports pain on inspiration, Reports dyspnea, Reports dyspnea on exertion Gastrointestinal: Reports no symptoms Genitourinary: Reports no symptoms Musculoskeletal: Reports no symptoms Integumentary: Reports no symptoms Neurological: Reports no symptoms Psychological: Reports no symptoms Endocrine: Reports no symptoms Hematological/Lymphatic: Reports no symptoms Physical Exam Related Data Allergies: Coded Allergies: No Known Allergies (Unverified , 12/12/17) Triage Vital Signs Vital Signs Date Time Temp Pulse Resp B/P (MAP) Pulse Ox O2 Delivery O2 Flow Rate FiO2 02/15/20 17:05 98.8 80 22 134/57 93 Room Air Vital signs reviewed: Yes Physical Exam CONSTITUTIONAL Constitutional: Present well-developed, Present well-nourished HENT HENT: Present normocephalic, Present atraumatic, Present oropharynx clear/moist, Present nose normal HENT L/R: Present left ext ear normal, Present right ext ear normal EYES Eyes: Reports PERRL, Reports conjunctivae normal NECK Neck: Present ROM normal PULMONARY Pulmonary: Present effort normal, Present other (decreased breath sounds ); Absent breath sounds normal, Absent chest tenderness CARDIOVASCULAR Cardiovascular: Present regular rhythm, Present heart sounds normal, Present capillary refill normal, Present normal rate GASTROINTESTINAL Abdominal: Present soft, Present nontender, Present bowel sounds normal GENITOURINARY Genitourinary: Present exam deferred SKIN Skin: Present warm, Present dry MUSCULOSKELETAL Musculoskeletal: Present ROM normal NEUROLOGICAL Neurological: Present alert, Present oriented x 3, Present no gross motor or sensory deficits PSYCHOLOGICAL Psychological: Present mood/affect normal, Present judgement normal Results Laboratory Lab results reviewed: Yes Imaging Imaging results reviewed: Yes Assessment & Plan Medical Decision Making MDM blood work, EKG and CXR to R/O pneumonia and infection Discussed with patient need to stay in hospital for IV ABX Assessment & Plan Final Impression: (1) COVID-19 (2) Hypoxia (3) Pneumonia (4) Shortness of breath Depart Disposition: ADMITTED Last Vital Signs Date Time Temp Pulse Resp B/P (MAP) Pulse Ox O2 Delivery O2 Flow Rate FiO2 02/15/20 17:05 98.8 80 22 134/57 93 Room Air Home Meds Active Scripts Azithromycin (Z-JEANNIE) 250 Mg Tablet, 250 MG PO UD, #1 UDPKT Z-Pack Prov:JOHNNA REDMOND SUPERVISOR VENEER 02/10/20 Zinc Sulfate (ZINC SULFATE) 220 Mg Capsule, 220 MG PO DAILY, #30 Prov:JOHNNA REDMOND SUPERVISOR VENEER 02/10/20 Ascorbic Acid (ASCORBIC ACID) 500 Mg Tablet, 500 MG PO DAILY, #30 Prov:JOHNNA REDMOND SUPERVISOR VENEER 02/10/20 Reported Medications Cholecalciferol (Vitamin D3) (D3-50) 50,000 Unit Capsule, 04428 UNITS PO WEEKLY 12/12/17 Metformin Hcl (METFORMIN HCL ER) 500 Mg Tab.er.24, 750 MG PO DAILY, #60 TAB 12/12/17 Aspirin (ASPIRIN EC) 81 Mg Tablet.dr, 81 MG PO DAILY, #30 TAB 12/12/17 Levothyroxine Sodium (LEVOTHYROXINE SODIUM) 50 Mcg Tablet, 25 MCG PO DAILY, #30 TAB 12/12/17 Meclizine Hcl (MECLIZINE HCL) 12.5 Mg Tablet, 12.5 MG PO TID PRN for DIZZINESS, TAB 12/12/17 Pravastatin Sodium (PRAVASTATIN SODIUM) 20 Mg Tablet, 20 MG PO DAILY 12/12/17 Discontinued Reported Medications Levofloxacin (LEVAQUIN) 250 Mg Tablet, 250 MG PO DAILY, #30 TAB 12/12/17 Naproxen (NAPROXEN) 250 Mg Tablet, 500 MG PO Q12H PRN for PAIN, TAB 12/12/17 ROMEO DODSON Feb 15, 2020 17:14
[2020-02-15] MEDS ORDERED: ALBUTEROL SULFATE HFA 8GM INHALATION AEROSOL INH ONE (17:30)
[2020-02-15] MEDS ORDERED: DEXTROSE 50% SYRINGE 50 ML IV PRN (17:30)
[2020-02-15] MEDS ORDERED: ALBUTEROL SULFATE HFA 8GM INHALATION AEROSOL INH PRN (17:30)
[2020-02-15] MEDS ORDERED: CEFTRIAXONE SOD 1 GM/NS 50 ML 50 ML IV ONE (17:30)
[2020-02-15 17:35] LABS: BASOPHILS % 0.4 % (0.0-1.0); EOSINOPHILS # (AUTO) 0.1 (0.0-0.4); EOSINOPHILS % 1.7 % (0.0-6.0); HEMOGLOBIN 11.9 g/dL (12.0-16.0); LYMPHOCYTES # (AUTO) 1.4 (1.0-3.2); LYMPHOCYTES % 18.4 % (18.0-39.1); MEAN CORPUSCULAR HGB CONC 32.2 g/dL (31-35); MEAN CORPUSCULAR VOLUME 90.2 fL (81-99); MONOCYTES # (AUTO) 0.6 (0.2-0.8); MONOCYTES % 7.4 % (4.4-11.3); NEUTROPHILS # (AUTO) 5.5 (2.1-6.9); NEUTROPHILS % 71.4 % (38.7-80.0); PLATELET COUNT 494 x10e3/uL (140-360); RED CELL DISTRIBUTION WIDTH 13.2 % (11.7-14.4)
[2020-02-15 17:55] LABS: ALBUMIN 3.1 g/dL (3.5-5.0); ALBUMIN/GLOBULIN RATIO 0.8 (0.8-2.0); ANION GAP 12.9 mmol/L (8-16); CALCIUM 9.6 mg/dL (8.4-10.2); CREATININE, SERUM 1.05 mg/dL (0.57-1.11); MAGNESIUM 1.9 MG/DL (1.3-2.1); POTASSIUM 4.9 mmol/L (3.5-5.1)
[2020-02-15 18:02] LABS: CREATINE KINASE MB 0.8 ng/mL (0-5.0)
--- NOTE | 2020-02-15 18:44 | Diagnostic Imaging Report ---
EXAMINATION: CHEST SINGLE (PORTABLE) INDICATION: ^Y ^ERMD ORDER ^[id number] ^1823 ^Y COMPARISON: 02/10/2020 FINDINGS: AP view TUBES and LINES: None. LUNGS: Lungs are well inflated. Again seen right lung and left basilar airspace opacities. PLEURA: No significant pleural effusion or pneumothorax. HEART AND MEDIASTINUM: The cardiomediastinal silhouette is unremarkable. BONES AND SOFT TISSUES: No acute osseous lesion. Soft tissues are unremarkable. UPPER ABDOMEN: No free air under the diaphragm. IMPRESSION: No significant interval change from prior exam. Signed by: Dr. Rodríguez Kaur MD on 02/15/2020 6:40 PM
[2020-02-15] MEDS: CEFTRIAXONE SOD 1 GRAM/0.9% SOD CHL 50ML BAG IV SCH (19:30)
[2020-02-15] MEDS: AZITHROMYCIN 500MG/SOD CHL 0.9% 250ML BAG IV SCH (20:00)
[2020-02-15] MEDS: SODIUM CHLORIDE 0.9% 1000ML 1,000 ML IV SCH (20:00)
[2020-02-15 21:25] LABS: BILIRUBIN,URINE NEGATIVE (NEGATIVE); CLARITY,URINE CLEAR (CLEAR); COLOR,URINE YELLOW (YELLOW); KETONES,URINE NEGATIVE (NEGATIVE); LEUKOCYTE ESTERASE ,URINE TRACE (NEGATIVE); NITRITE,URINE NEGATIVE (NEGATIVE); PROTEIN,URINE DIPSTICK NEGATIVE (NEGATIVE); URINE UROBILINOGEN 0.2 mg/dL (0.2 - 1)
[2020-02-15 21:36] LABS: BACTERIA,URINE FEW /HPF; EPITHELIAL CELLS,URINE MODERATE /LPF; HYALINE CASTS 0-1 (0-1); WBC,URINE (MAN) 0-5 /HPF (0-5)
[2020-02-15] MEDS: INSULIN REGULAR, HUMAN 100 UNIT/1 ML 3ML VIAL SQ SCH (23:00)
[2020-02-15] MEDS: PANTOPRAZOLE 40 MG 10ML VIAL IV SCH (23:00)
[2020-02-15] MEDS ORDERED: ONDANSETRON HCL INJ 2MG/ML 2ML 2 MG/ML VIAL IV PRN (23:15)
[2020-02-16] MEDS: PANTOPRAZOL 40MG/SOD CHL 0.9% 50 ML IV SCH (00:05)
--- NOTE | 2020-02-16 00:10 | Consultation ---
DATE OF CONSULTATION: Pulmonary Critical Care Consultation CHIEF COMPLAINT: Abdominal discomfort and nausea. HISTORY OF PRESENT ILLNESS: The patient is an 84-year-old woman with her recent admission to [facility] in the end of January for COVID-19 infection with gastrointestinal symptoms. She was released on the February 09. She now returns on February 14 complaining of epigastric discomfort and nausea. She could not eat anything. She does not complain of vomiting or diarrhea. She has minimal dyspnea and minimal fevers. PAST MEDICAL HISTORY: 1. Diabetes. 2. Hypothyroidism. PAST SURGICAL HISTORY: 1. Status post cholecystectomy. 2. Status post bilateral knee surgeries. SOCIAL HISTORY: The patient has never been a smoker or drinker. FAMILY HISTORY: Noncontributory. ALLERGIES: NO KNOWN DRUG ALLERGIES. REVIEW OF SYSTEMS: The patient is uncertain about fevers. The patient did note no headache. No neck pain. There is some mild dyspnea and mild cough. There is some epigastric discomfort and some nausea. She has decreased appetite. She has no nausea or vomiting. She has no leg edema. PHYSICAL EXAMINATION: VITAL SIGNS: The blood pressure is 134/54, saturation is 97%. The pulse is 79. The respiratory rate is 18. The patient is afebrile. HEENT: No facial swelling or erythema. Nasal mucosa is normal. The oropharynx is normal. LYMPHATIC: No submandibular, cervical, or supraclavicular adenopathy. CARDIAC: Reveals regular rate and rhythm with normal S1 and S2. LUNGS: Auscultation of lungs reveals clear breath sounds bilaterally. There is no wheezing. ABDOMEN: Soft and nontender. There is no rebound or guarding. EXTREMITIES: No leg edema or calf tenderness. There is no cyanosis or clubbing. SKIN: No rashes. NEUROLOGICAL: No focal abnormalities. LABORATORY DATA: White blood cell count is 7.67 and hemoglobin is 11.8. The platelet count is 494. BUN to creatinine ratio is 11 to 1.05, and the other electrolytes are within normal limits. RADIOGRAPHIC DATA: Chest x-ray shows some right and left basilar airspace opacities. A CT scan of the abdomen and pelvis from the February 07 shows some patchy ground-glass densities in the lower lobes and some gab mesenteric changes possibly associated with inflammatory condition. IMPRESSION: 1. Coronavirus disease-19 infection and viral pneumonia. 2. Epigastric discomfort and nausea. 3. Diabetes. 4. Acute kidney injury and dehydration. PLAN: 1. IV fluids. 2. GI consultation. 3. Antiemetics. 4. Rocephin and Zithromax. 5. Monitor and control blood sugars. MD ADI Romero/FLASH /[id number]
[2020-02-16 00:33] LABS: AMYLASE 38 U/L (25-125); LIPASE 14 U/L (8-78)
[2020-02-16 00:41] LABS: CHOL/HDL RATIO 3.9 (3.0-3.6); PHOSPHORUS 3.3 MG/DL (2.3-4.7)
[2020-02-16 00:58] LABS: CREATINE KINASE MB 0.8 ng/mL (0-5.0)
[2020-02-16 01:01] LABS: THYROID STIMULATING HORMONE 3.465 uIU/mL (0.350-4.940)
[2020-02-16] MEDS: SODIUM CHLORIDE 0.9% 1000ML 1,000 ML IV SCH ×3 (03:16→21:09)
[2020-02-16 06:02] LABS: ALANINE AMINOTRANSFERASE 17 IU/L (0-55); ALBUMIN 2.8 g/dL (3.5-5.0); ALBUMIN/GLOBULIN RATIO 0.8 (0.8-2.0); ALKALINE PHOSPHATASE 92 IU/L (40-150); ANION GAP 10.6 mmol/L (8-16); BLOOD UREA NITROGEN 8 mg/dL (7-26); BUN/CREATININE RATIO 10 (6-25); CALCIUM 8.9 mg/dL (8.4-10.2); CARBON DIOXIDE 24 mmol/L (22-29); CHLORIDE 107 mmol/L (98-107); CREATININE, SERUM 0.82 mg/dL (0.57-1.11); EST GLOMERULAR FILTRATION RATE > 60 ML/MIN (60-); GLUCOSE 127 mg/dL (74-118); POTASSIUM 4.6 mmol/L (3.5-5.1); SODIUM 137 mmol/L (136-145)
[2020-02-16] MEDS: LEVOTHYROXINE SODIUM 25 MCG TABLET PO SCH (06:03)
[2020-02-16 06:16] LABS: CREATINE KINASE 27 IU/L (29-168)
[2020-02-16 06:37] LABS: BASOPHILS % 0.5 % (0.0-1.0); EOSINOPHILS # (AUTO) 0.1 (0.0-0.4); HEMOGLOBIN 11.4 g/dL (12.0-16.0); LYMPHOCYTES # (AUTO) 1.2 (1.0-3.2); LYMPHOCYTES % 17.9 % (18.0-39.1); MEAN CORPUSCULAR HEMOGLOBIN 29.5 pg (28-32); MEAN CORPUSCULAR HGB CONC 31.7 g/dL (31-35); MONOCYTES # (AUTO) 0.6 (0.2-0.8); NEUTROPHILS # (AUTO) 4.7 (2.1-6.9); PLATELET COUNT 376 x10e3/uL (140-360); RED BLOOD COUNT 3.87 x10e6/uL (3.6-5.1); RED CELL DISTRIBUTION WIDTH 13.2 % (11.7-14.4)
--- NOTE | 2020-02-16 07:00 | NUR ---
REPORT GIVEN TO SIENNA AGUILLON
[2020-02-16] MEDS ORDERED: ACETAMINOPHEN 325 MG TAB PO PRN (07:30)
[2020-02-16] MEDS ORDERED: HYDRALAZINE HCL 20 MG/ML VIAL IV PRN ×2 (07:30→07:45)
[2020-02-16 07:33] LABS: CREATINE KINASE MB 0.7 ng/mL (0-5.0)
[2020-02-16] MEDS: INSULIN REGULAR, HUMAN 100 UNIT/1 ML 3ML VIAL SQ SCH ×4 (07:56→21:50)
[2020-02-16] MEDS: PANTOPRAZOLE 40 MG 10ML VIAL IV SCH (08:31)
[2020-02-16] MEDS: ZINC SULFATE 220 MG CAP PO SCH (08:31)
[2020-02-16] MEDS: ASPIRIN 81 MG ENTERIC COATED PO SCH (08:31)
[2020-02-16] MEDS: PRAVASTATIN 20 MG TAB PO SCH (08:31)
[2020-02-16] MEDS: ASCORBIC ACID 500 MG TAB PO SCH ×2 (08:31→17:58)
[2020-02-16] MEDS ORDERED: ASCORBIC ACID 500 MG TAB PO SCH (09:00)
[2020-02-16] MEDS ORDERED: MECLIZINE HCL 12.5 MG TAB PO PRN (15:30)
[2020-02-16] MEDS ORDERED: CHOLECALCIFEROL 50000 UNIT PO SCH (15:30)
--- NOTE | 2020-02-16 16:35 | NUR ---
Ben Castro addition family contact
[2020-02-16] MEDS: ENOXAPARIN SOD INJ 40 MG/0.4 ML SYR SC SCH (17:58)
--- NOTE | 2020-02-16 18:22 | Progress Note ---
DATE: SUBJECTIVE: The patient still complains of some epigastric discomfort. She is not complaining of cough or dyspnea. She does not have fevers. PHYSICAL EXAMINATION: VITAL SIGNS: The blood pressure is 120/57 and saturation is 94% on 4 L. HEENT: Shows no facial swelling or erythema. CARDIAC: Reveals regular rate and rhythm with normal S1 and S2. LUNGS: Auscultation of lungs reveals rhonchorous breath sounds bilaterally. There is no wheezing. ABDOMEN: Soft. There is some mild tenderness. There is no rebound or guarding. EXTREMITIES: Shows no leg edema or calf tenderness. There is no cyanosis or clubbing. SKIN: Shows no rashes. LABORATORY DATA: Electrolytes, BUN and creatinine are within normal limits. Amylase and lipase are normal. CBC is within normal limits. IMPRESSION: 1. COVID-19 infection and viral pneumonia. 2. Epigastric discomfort and nausea. 3. Diabetes. 4. Acute kidney injury. PLAN: 1. Await GI consultation. 2. IV fluids as needed. 3. Antiemetics. 4. Continue Rocephin and Zithromax. 5. Monitor and control blood sugars. Doe Kearney MD [facility]/MODL /[id number]
[2020-02-16 21:01] VITALS: BP 119/46
[2020-02-16 21:09] VITALS: BP 119/46
[2020-02-16] MEDS: CEFTRIAXONE SOD 1 GRAM/0.9% SOD CHL 50ML BAG IV SCH (21:09)
[2020-02-16] MEDS ORDERED: BROMPHENIR-PSE118 ML PO (21:19)
[2020-02-16] MEDS ORDERED: METFORMIN HCL750 MG PO (21:19)
[2020-02-16] MEDS ORDERED: BACTRIM DS TAB1 EACH PO (21:19)
[2020-02-16] MEDS ORDERED: DICLOFENAC SODI75 MG PO (21:19)
[2020-02-16 21:43] VITALS: BP 119/46
--- NOTE | 2020-02-16 21:45 | NUR ---
Spoke to family on phone per patient request. Patient resting quietly in bed, respirations even and unlabored, vital signs stable, no s/s of distress at this time. 2L O2 NC in place. Bed locked and in lowest position, side rails upx3, call light placed within reach. All safety measures in place. Will continue to monitor.
[2020-02-16] MEDS: AZITHROMYCIN 500MG/SOD CHL 0.9% 250ML BAG IV SCH (21:50)
[2020-02-16] MEDS ORDERED: PANTOPRAZOLE 40 MG 10ML VIAL IV STA (23:34)
[2020-02-17] VITALS (8 sets, daily range): BP systolic 106–141; BP diastolic 49–80
[2020-02-17] MEDS: PANTOPRAZOL 40MG/SOD CHL 0.9% 50 ML IV SCH ×5 (00:05→21:21)
--- NOTE | 2020-02-17 00:34 | NUR ---
Dr. Jessica Vasquez here to see patient. No new orders received at this time.
--- NOTE | 2020-02-17 02:30 | NUR ---
Jay Flores BARK TANNER on unit. Informed him of Dr. Vasquez's orders for Protonix drip. Per BARK TANNER, keep patient on NS @ 125. No new orders received at this time.
[2020-02-17] MEDS ORDERED: LEVOTHYROXINE25 MCG PO (04:22)
[2020-02-17] MEDS: SODIUM CHLORIDE 0.9% 1000ML 1,000 ML IV SCH ×3 (04:35→17:26)
[2020-02-17] MEDS: LEVOTHYROXINE SODIUM 25 MCG TABLET PO SCH (05:25)
[2020-02-17 06:26] LABS: BASOPHILS % 0.5 % (0.0-1.0); EOSINOPHILS # (AUTO) 0.1 (0.0-0.4); EOSINOPHILS % 2.1 % (0.0-6.0); HEMOGLOBIN 11.3 g/dL (12.0-16.0); LYMPHOCYTES # (AUTO) 1.7 (1.0-3.2); MEAN CORPUSCULAR HEMOGLOBIN 30.1 pg (28-32); MEAN CORPUSCULAR HGB CONC 31.4 g/dL (31-35); MONOCYTES # (AUTO) 0.7 (0.2-0.8); MONOCYTES % 11.5 % (4.4-11.3); NEUTROPHILS # (AUTO) 3.1 (2.1-6.9); NEUTROPHILS % 54.8 % (38.7-80.0); PLATELET COUNT 427 x10e3/uL (140-360); RED BLOOD COUNT 3.75 x10e6/uL (3.6-5.1); RED CELL DISTRIBUTION WIDTH 13.3 % (11.7-14.4)
[2020-02-17 06:52] LABS: ANION GAP 11.1 mmol/L (8-16); BLOOD UREA NITROGEN 7 mg/dL (7-26); BUN/CREATININE RATIO 9 (6-25); CALCIUM 8.7 mg/dL (8.4-10.2); CARBON DIOXIDE 23 mmol/L (22-29); CHLORIDE 108 mmol/L (98-107); CREATININE, SERUM 0.79 mg/dL (0.57-1.11); EST GLOMERULAR FILTRATION RATE > 60 ML/MIN (60-); GLUCOSE 82 mg/dL (74-118); POTASSIUM 4.1 mmol/L (3.5-5.1); SODIUM 138 mmol/L (136-145)
[2020-02-17] MEDS: INSULIN REGULAR, HUMAN 100 UNIT/1 ML 3ML VIAL SQ SCH ×4 (07:30→21:21)
[2020-02-17] MEDS: SUCRALFATE 1 GM TAB PO SCH ×4 (07:30→21:21)
[2020-02-17 08:07] LABS: FERRITIN 346.64 ng/mL (4.63-204.00)
[2020-02-17] MEDS: ASPIRIN 81 MG ENTERIC COATED PO SCH (09:00)
[2020-02-17] MEDS: ASCORBIC ACID 500 MG TAB PO SCH ×2 (09:00→17:26)
[2020-02-17] MEDS: METFORMIN HCL 750 MG TAB ER PO SCH (09:00)
[2020-02-17] MEDS: PRAVASTATIN 20 MG TAB PO SCH (09:00)
[2020-02-17] MEDS: ZINC SULFATE 220 MG CAP PO SCH (09:00)
--- NOTE | 2020-02-17 16:21 | Progress Note ---
DATE: Pulmonary Progress Note SUBJECTIVE: The patient was seen by Gastroenterology and started on Protonix drip. She has less abdominal pain. She is able to eat better. She is not complaining of dyspnea or cough. PHYSICAL EXAMINATION: VITAL SIGNS: The patient is afebrile. The blood pressure is 106/75, saturation is 97%, and the pulse is 61. HEENT: Shows no facial swelling or erythema. CARDIAC: Reveals a regular rate and rhythm with normal S1 and S2. There are no murmurs or rubs. LUNGS: Auscultation of lungs reveals crackles at the bases. There is no wheezing. ABDOMEN: Soft and nontender. There is no rebound or guarding. IMPRESSION: 1. COVID-19 and viral pneumonia. 2. Epigastric discomfort. 3. Diabetes. 4. Acute kidney injury. PLAN: 1. Continue oxygen. 2. Continue Protonix. 3. Physical therapy. 4. Re-evaluate tomorrow for possible discharge home. Doe Kearney MD [facility]/FLASH /[id number]
[2020-02-17] MEDS ORDERED: AZITHROMYCIN 250 MG TAB PO SCH (17:00)
[2020-02-17] MEDS: ENOXAPARIN SOD INJ 40 MG/0.4 ML SYR SC SCH (17:26)
[2020-02-17] MEDS: CEFTRIAXONE SOD 1 GRAM/0.9% SOD CHL 50ML BAG IV SCH (17:26)
[2020-02-17] MEDS ORDERED: LACTULOSE SYRUP 20 GM/30 ML UDC PO PRN (19:00)
--- NOTE | 2020-02-17 20:00 | NUR ---
Resumed care of patient. Patient resting quietly in bed, respirations even and unlabored, O2 92% on RA. Vital signs stable, no s/s of distress at this time. Bed locked and in lowest position, side rails upx3, alarm on, call light placed within reach. Patient educated consumer credit counselor light use, able to show return demonstration. All safety measures in place. Will continue to monitor.
[2020-02-17] MEDS: DOCUSATE SODIUM 100 MG CAP PO SCH (21:21)
--- NOTE | 2020-02-17 21:32 | Progress Note ---
DATE: 02/17/2020 SUBJECTIVE: The patient is lying supine in bed. Complains that she is constipated. She has been tolerating her diet well today, but feels "full." She denies abdominal pain. In fact, has no pain at all, per nursing eating 50% of her meals today. No complaints of dyspnea or cough. OBJECTIVE: VITAL SIGNS: Temperature 97.7, heart rate 61, blood pressure 111/80, respirations 18, and oxygen saturation 97%. GENERAL: Supine. LUNGS: With bibasilar crackles. No wheezing. She had oxygen before, but is currently on room air. HEENT: EOMI. NECK: Supple. No JVD. CARDIOVASCULAR: Regular rate and rhythm. No murmur. Protonix drip showed normal saline at 125 mL an hour. ABDOMEN: Bowel sounds positive. Soft, nontender. No guarding. EXTREMITIES: No pitting edema. No clubbing, cyanosis, or marked swelling or signs of DVT. NEUROLOGICAL: GCS 15. Nonfocal. LABORATORY DATA: WBC 5.64, hemoglobin 11.3, hematocrit 36, platelets 427. Sodium 138, potassium 4.1, chloride 108, CO2 of 23, BUN 7, anion gap 11.1, creatinine 0.79, estimated GFR greater than 60, glucose 82, calcium 8.7, iron 67, TIBC 220, percent saturation 30, transferrin 157, ferritin 346.64, vitamin B12 of 1559, folate pending. Fingerstick blood glucose levels 99 and 170. No new chest x-ray results. ASSESSMENT AND PLAN: 1. Viral community-acquired pneumonia, present on admission, due to coronavirus disease-19. Continue Rocephin, azithromycin, Lovenox, nebs, vitamin C, zinc sulfate, droplet isolation, IV fluids. 2. Epigastric discomfort with nausea. Gastroenterology following. Continue antiemetics, is on a Protonix drip. Abdominal pain improved. The pain had reportedly been exacerbated with food. Fecal occult blood test has been ordered by GI. Per documentation, will need EGD. I entered orders for the patient to be n.p.o. after midnight in case the EGD desired by Dr. Vasquez. 3. Acute kidney injury with dehydration, estimated GFR greater than 60 now. If the patient continues to eat well, may be able to decrease IV fluid rate. 4. Controlled type 2 diabetes mellitus. Hemoglobin A1c 8.4%. Fingerstick blood glucose levels stable. Monitor. 5. Controlled hypertension. Blood pressure 111/80 this morning. Monitor blood pressure. 6. Hyperlipidemia, on pravastatin. 7. Hypothyroidism. TSH 3.465. Continue levothyroxine. 8. Prophylaxis, Lovenox, Protonix. 9. Disposition. Re-evaluate tomorrow for possible discharge home. Case was discussed with patient's daughter on the phone. The patient's daughter has concerns about recidivism; however, I explained that overall the patient is improving and maybe able to be discharged home safely tomorrow. Time spent 35 minutes. Billing code [id number]. Dictated by Jay Flores NP Augustus Laura MD [facility]/MODL /[id number]
[2020-02-18] VITALS (8 sets, daily range): BP systolic 129–154; BP diastolic 50–86
--- NOTE | 2020-02-18 00:22 | NUR ---
Spoke with family on phone and provided updates on patient status and plan of care. Concerns addressed.
--- NOTE | 2020-02-18 01:27 | NUR ---
Dr. Jessica Vasquez here to see patient. Per MD, keep patient NPO and plan for EGD during the day if okay with administration.
[2020-02-18] MEDS: SODIUM CHLORIDE 0.9% 1000ML 1,000 ML IV SCH ×2 (04:00→12:18)
[2020-02-18] MEDS: PANTOPRAZOL 40MG/SOD CHL 0.9% 50 ML IV SCH ×4 (04:00→23:00)
--- NOTE | 2020-02-18 04:45 | NUR ---
Home O2 eval completed. Copy placed on patient's chart.
[2020-02-18] MEDS: LEVOTHYROXINE SODIUM 25 MCG TABLET PO SCH (05:22)
[2020-02-18 05:32] LABS: BASOPHILS % 0.7 % (0.0-1.0); EOSINOPHILS # (AUTO) 0.1 (0.0-0.4); EOSINOPHILS % 2.2 % (0.0-6.0); HEMATOCRIT 37.4 % (34.2-44.1); HEMOGLOBIN 11.9 g/dL (12.0-16.0); LYMPHOCYTES # (AUTO) 1.6 (1.0-3.2); LYMPHOCYTES % 28.3 % (18.0-39.1); MEAN CORPUSCULAR HEMOGLOBIN 29.2 pg (28-32); MEAN CORPUSCULAR HGB CONC 31.8 g/dL (31-35); MEAN CORPUSCULAR VOLUME 91.9 fL (81-99); MONOCYTES # (AUTO) 0.6 (0.2-0.8); MONOCYTES % 10.5 % (4.4-11.3); NEUTROPHILS # (AUTO) 3.3 (2.1-6.9); NEUTROPHILS % 57.6 % (38.7-80.0); PLATELET COUNT 497 x10e3/uL (140-360); RED BLOOD COUNT 4.07 x10e6/uL (3.6-5.1); RED CELL DISTRIBUTION WIDTH 12.9 % (11.7-14.4)
--- NOTE | 2020-02-18 05:43 | NUR ---
Attempted to place call to family to inform them of plan for possible EGD as previously requested. No answer received at this time. Will try again later.
[2020-02-18 05:53] LABS: BLOOD UREA NITROGEN 7 mg/dL (7-26); BUN/CREATININE RATIO 9 (6-25); CARBON DIOXIDE 23 mmol/L (22-29); CHLORIDE 108 mmol/L (98-107); CREATININE, SERUM 0.81 mg/dL (0.57-1.11); EST GLOMERULAR FILTRATION RATE > 60 ML/MIN (60-); GLUCOSE 106 mg/dL (74-118); MAGNESIUM 1.8 MG/DL (1.3-2.1); SODIUM 139 mmol/L (136-145)
[2020-02-18] MEDS: INSULIN REGULAR, HUMAN 100 UNIT/1 ML 3ML VIAL SQ SCH ×4 (07:30→23:00)
[2020-02-18] MEDS: SUCRALFATE 1 GM TAB PO SCH ×4 (07:30→23:00)
--- NOTE | 2020-02-18 07:46 | NUR ---
PATIENT SITTING UP IN BED TALKING ON THE PHONE, NO DISTRESS NOTED. ALL PERSONAL ITEMS CLOSE TO PATIENT. BED IN LOWER POSITION, CALL LIGHT AT REACH.
[2020-02-18] MEDS: DOCUSATE SODIUM 100 MG CAP PO SCH ×3 (09:00→23:00)
[2020-02-18] MEDS: POLYETHYLENE GLYCOL 3350 17 GM PACK PO SCH ×2 (09:00→17:11)
--- NOTE | 2020-02-18 11:05 | NUR ---
PATIENT IN BED RESTING WITH NO S/S OF DISTRESS. REWMAINS NPOI FOR A PROCEDURE. CALL LIGHT AT REACH.
[2020-02-18] MEDS: PRAVASTATIN 20 MG TAB PO SCH (12:18)
[2020-02-18] MEDS: ZINC SULFATE 220 MG CAP PO SCH (12:18)
[2020-02-18] MEDS: ASCORBIC ACID 500 MG TAB PO SCH ×2 (12:18→17:10)
[2020-02-18] MEDS: METFORMIN HCL 750 MG TAB ER PO SCH (12:18)
[2020-02-18] MEDS: ASPIRIN 81 MG ENTERIC COATED PO SCH (12:18)
--- NOTE | 2020-02-18 12:39 | NUR ---
Spoke to endo nurse, she stated that the patient procedure was cancelled. All AM medications given.
--- NOTE | 2020-02-18 14:43 | NUR ---
PAST MEDICAL HISTORY: 1. Diabetes. 2. Hypothyroidism. PAST SURGICAL HISTORY: 1. Status post cholecystectomy. 2. Status post bilateral knee surgeries. SOCIAL HISTORY: The patient has never been a smoker or drinker. FAMILY HISTORY: Noncontributory. ALLERGIES: NO KNOWN DRUG ALLERGIES. REVIEW OF SYSTEMS: The patient is uncertain about fevers. The patient did note no headache. No neck pain. There is some mild dyspnea and mild cough. There is some epigastric discomfort and some nausea. She has decreased appetite. She has no nausea or vomiting. She has no leg edema. [id number]
[2020-02-18] MEDS ORDERED: ACETAMINOPHEN325 M1 PO (15:24)
[2020-02-18] MEDS ORDERED: MIRALAX17 GM PO (15:24)
[2020-02-18] MEDS ORDERED: ZOFRAN8 MG PO (15:24)
[2020-02-18] MEDS ORDERED: CARAFATE1 GM PO (15:24)
[2020-02-18] MEDS ORDERED: COLACE100 MG PO (15:24)
[2020-02-18] MEDS ORDERED: VITAMIN C1000 MG PO (15:24)
[2020-02-18 15:25] LABS: BILIRUBIN,DIRECT 0.2 mg/dL (0.0-0.5)
--- NOTE | 2020-02-18 16:13 | NUR ---
PATIENT HAS A DISCHARGE ORDER. AWAITING FOR HOME OXYGEN TO BE SET UP. IN BED TALKING ON THE PHONE, CALL LIGHT AT REACH.
[2020-02-18] MEDS ORDERED: ONDANSETRON HCL 4 MG ORAL DISINTEGRATING TAB PO PRN (16:15)
--- NOTE | 2020-02-18 16:31 | Progress Note ---
DATE: SUBJECTIVE: The patient reports some abdominal pain and discomfort that improved with Pepcid. She also received Protonix from GI. She is not having any dyspnea or cough. She is not having any chest pain. PHYSICAL EXAMINATION: VITAL SIGNS: Blood pressure is 154/86, saturation is 96%, and the pulse is 72. HEENT: Shows no facial swelling or erythema. CARDIAC: Reveals regular rate and rhythm with normal S1 and S2. LUNGS: Auscultation of lungs reveals clear breath sounds bilaterally. There is no wheezing. ABDOMEN: Soft and nontender. There is no rebound or guarding. EXTREMITIES: Shows no leg edema or calf tenderness. There is no cyanosis or clubbing. SKIN: Shows no rashes. IMPRESSION: 1. Gastritis and dyspepsia. 2. Viral pneumonia and COVID-19 infection. 3. Diabetes. 4. Hypertension. PLAN: 1. The patient will be continued on Protonix. She will have follow up with GI and a possible endoscopy. 2. The patient will have home oxygen in event of dyspnea. 3. The patient will follow up with physician in 2 weeks. During that time, she will remain in self-quarantine. 4. The patient should return to ER for any worsening dyspnea, fever, or other worrisome symptoms. MD ADI Romero/FLASH /[id number]
--- NOTE | 2020-02-18 16:37 | NUR ---
ORDER RECEIVED FOR HOME O2 2L/NC. CONTACTED PT'S SON PARMJIT @ [phone]. EXPLAINED TO PURPOSE OF THE CALL. INFORMED HIM HIS MOTHER DID NOT QUALIFY FOR HOME O2, BUT WANTED TO PAY OUT OF POCKET FOR IT. SON VERBALIZED UNDERSTANDING. STATES SHE AND HIS SISTER WALTER MATHEW LIVE TOGETHER, BUT THEY SPEAK VERY LITTLE NEPALESE. VERIFIED DEMOGRAPHICS. PROVIDED CHOICE W OOP COST. CHOSE [facility]. WILL AWAIT CALL TO ARRANGE PAYMENT. REFERRAL WAS FAXED TO [facility] @ OFFR: [phone] / FAX: [phone].
--- NOTE | 2020-02-18 16:41 | Discharge Summary ---
PRIMARY CARE PHYSICIAN: No PCP. CONSULTING PHYSICIANS: 1. Artur Vasquez MD, with Gastroenterology. 2. Doe Kearney MD, with Pulmonology/Critical Care Medicine. 3. Francois Houston MD, with Infectious Disease. CHIEF COMPLAINT: Pneumonia and not feeling better. HISTORY OF PRESENT ILLNESS: The patient is an 84-year-old female admitted here at [facility] at the end of January with COVID-19 and GI signs and symptoms, was discharge 02/10/2020, now readmitted on 02/15/2020 due to nausea and GI discomfort. Although she denies vomiting or diarrhea, she is unable to eat. PAST MEDICAL HISTORY: Diabetes mellitus, hypothyroidism, hypertension, and hyperlipidemia. PAST SURGICAL HISTORY: Appendectomy, cholecystectomy, bilateral knee surgeries. FAMILY HISTORY: None. SOCIAL HISTORY: Denies any use of tobacco, alcohol, or illicit drugs. ALLERGIES: NO KNOWN ALLERGIES. ADMITTING DIAGNOSES: 1. Viral community-acquired pneumonia, present on admission, due to coronavirus disease-19. 2. Epigastric discomfort with nausea. 3. Acute kidney disease with dehydration. 4. Controlled type 2 diabetes mellitus. 5. Controlled hypertension. 6. Hyperlipidemia. 7. Hypothyroidism. DISCHARGE DIAGNOSES: 1. Viral community-acquired pneumonia, present on admission, due to coronavirus disease-19. 2. Epigastric discomfort with nausea. 3. Acute kidney disease with dehydration. 4. Controlled type 2 diabetes mellitus. 5. Controlled hypertension. 6. Hyperlipidemia. 7. Hypothyroidism. 8. Gastritis, likely due to erythromycin. On admission, CBC generally within normal limits with elevated platelet count 494. Sodium 133, estimated GFR 50, glucose 146, lactic acid 1.2, magnesium 1.9. Urinalysis was within normal limits. Coronavirus PCR detected on 02/14. Influenza types A and B were negative. Blood cultures x2 showed no growth after 48 hours. Final urine culture was negative. Chest x-ray on 02/14 showed no significant interval change from the prior exam, again seen right lung and left basilar airspace opacities. Today, telemetry shows sinus rhythm with a heart rate of 71. Plan was for EGD; however, this was not done as patient is COVID positive. She does have a history of black stool. She was given laxatives for constipation. During her stay, she was on Rocephin and azithromycin as well as Lovenox nebulized treatments, vitamin C, zinc sulfate, and IV fluids for COVID-19. Droplet isolation was maintain. Antiemetics and Protonix were used for the epigastric discomfort with nausea. Renal function gradually improving. Hemoglobin A1c 8.4%. Hypertension was controlled. TSH 3.465. Levothyroxine was continued. The patient will be discharged home with family. Dr. Houston discussed the case with the patient's daughter, gave her reassurance. The patient to be on a diabetic diet at home. Activity level as tolerated. She did not qualify for home oxygen. Her oxygen saturation at rest on room air 96%, and oxygen saturation with exertion on room air 91%. She is to follow up with PCP in 6 weeks. Follow up with Dr. Houston in 4 weeks. Follow up with Dr. Vasquez in 4-[address] Houston left prescriptions for Prilosec 40 mg p.o. daily and Eliquis 2.5 mg p.o. b.i.d. for 30 days. I have written prescriptions for p.r.n. Tylenol, Colace t.i.d. for complaints of constipation, MiraLax b.i.d. scheduled for complaints of constipation, Carafate 1 g p.o. before meals and at bedtime as she was on this in the hospital, vitamin C 1 g p.o. b.i.d. for 30 days, Zofran p.r.n. for nausea, zinc sulfate 220 mg p.o. b.i.d. for 30 days. Dictated by Jay Flores NP MD ROMAIN Andersen/DAKOTAL /[id number]
[2020-02-18] MEDS: ENOXAPARIN SOD INJ 40 MG/0.4 ML SYR SC SCH (17:00)
[2020-02-18] MEDS ORDERED: ELIQUIS2.5 MG PO (17:26)
[2020-02-18] MEDS ORDERED: PRILOSEC10 M1 PO (17:28)
--- NOTE | 2020-02-18 18:21 | Consultation ---
DATE OF CONSULTATION: REASON FOR CONSULTATION: COVID-19. HISTORY OF PRESENT ILLNESS: This is a very pleasant 84-year-old female. She was in the hospital 10 days ago for COVID-19. She was discharged home. She was not hypoxemic. She was doing well. Apparently, she went home with Z-Federico and zinc, but the patient apparently started to have nausea, not eating well, she felt really weak. The family told me that her O2 saturation dropped today 80, so they brought her back here. She was admitted 2 days ago and I was consulted today. The patient, she is currently alert, oriented, really doing well with no oxygen whatsoever. I have looked at all her chart, discussed with all physicians, discussed with the family on 2 occasions and discussed with medical team on 2 occasions. PAST MEDICAL HISTORY: As above. PAST SURGICAL HISTORY: As above. ALLERGIES: NKA. SOCIAL HISTORY: There is no smoking, drug abuse, or alcohol abuse. FAMILY HISTORY: Otherwise unremarkable. PHYSICAL EXAMINATION: GENERAL: She is currently alert, oriented. VITAL SIGNS: Stable. Currently afebrile. HEENT: She is not icteric. NECK: Supple. CHEST: Clear bilateral. HEART: S1, S2. No murmurs. ABDOMEN: Soft. Bowel sounds present. EXTREMITIES: No edema. SKIN: No rash. IMPRESSION: 1. Abdominal discomfort and nausea. I think this is gastritis probably due to medication. The patient can be switched to oral Prilosec. Discussed with GI and Pulmonary. 2. Abnormal chest x-ray - due to her previous coronavirus disease-19 and she is not hypoxemic. 3. There is no need for antibiotic. 4. Discussed with the family. The patient can go home. I think it would benefit for her to go with home oxygen 2 L just in case even though she may not fit overlock collar setter's criteria to push p.o. nutrition with full liquid diet and high-protein diet. Prilosec 20 mg p.o. b.i.d., Eliquis 2.5 mg p.o. b.i.d. for one month, and the patient could be discharged home today. I answered all their question. Discussed with them at length as mentioned above. Time spent 1 hour. MD KARYN Siegel/FLASH /[id number]
--- NOTE | 2020-02-18 19:15 | NUR ---
PATIENT'S O2 TANK ARRIVED. DISCHARGED PAPERS COMPLETED. FAMILY MEMBER CALLED FOR INSTRUCTIONS AND TRANSPORTATION, SHE SAID THAT SHE IS NOT PICKING HER UP UNTIL SHE SPEAKS TO DR HOUSE. DR HOUSE NOTIFIED AND NUMBER GIVEN. HE CALLED THE FAMILY NUMBER AND AFTER THE CONVERSATION, HE STATED THAT THE PATIENT CAN STAY.
[2020-02-18] MEDS ORDERED: LACTATED RINGER'S 1,000 ML INJ SCH (19:30)
[2020-02-19] VITALS: BP 139/58
[2020-02-19 04:00] VITALS: BP 128/57
[2020-02-19] MEDS: LEVOTHYROXINE SODIUM 25 MCG TABLET PO SCH (05:31)
[2020-02-19] MEDS: PANTOPRAZOL 40MG/SOD CHL 0.9% 50 ML IV SCH ×2 (05:31→06:18)
--- NOTE | 2020-02-19 07:14 | NUR ---
PATIENT ASSISTED TO THE BED SIDE COMMODE AND BACK TO BED. SITTING UP IN BED TALKING ON THE PHONE, CALL LIGHT AT REACH.
[2020-02-19] MEDS: INSULIN REGULAR, HUMAN 100 UNIT/1 ML 3ML VIAL SQ SCH (07:30)
[2020-02-19] MEDS: SUCRALFATE 1 GM TAB PO SCH (07:30)
[2020-02-19 07:50] VITALS: BP 143/78
[2020-02-19 08:20] VITALS: BP 143/78
[2020-02-19] MEDS: PRAVASTATIN 20 MG TAB PO SCH (08:59)
[2020-02-19] MEDS: ASCORBIC ACID 500 MG TAB PO SCH (08:59)
[2020-02-19] MEDS: DOCUSATE SODIUM 100 MG CAP PO SCH (08:59)
[2020-02-19] MEDS: ASPIRIN 81 MG ENTERIC COATED PO SCH (08:59)
[2020-02-19] MEDS: METFORMIN HCL 750 MG TAB ER PO SCH (08:59)
[2020-02-19] MEDS: POLYETHYLENE GLYCOL 3350 17 GM PACK PO SCH (08:59)
[2020-02-19] MEDS: ZINC SULFATE 220 MG CAP PO SCH (09:00)
[2020-02-19] MEDS ORDERED: ZINC SULFATE220 MG PO (11:22)
[2020-02-19] MEDS ORDERED: PREDNISONE20 MG PO (11:23)
--- NOTE | 2020-02-19 11:45 | NUR ---
PATIENT DISCHARGED HOME. DISCHARGE INSTRUCTIONS, PRESCRIPTIONS, AND FOLLOW UP GIVEN TOMPATIENT AND HER GRAND DAUGHTER, THEY VERBALIZED UNDERSTANDING. IV TO RIGHT FOREARM REMOVED WITH TIP INTACT. ALL PERSONAL ITEMS INCLUDING OXY GEN TANK TAKEN WITH PATIENT. LEFT UNIT PER WHEEL CHAIR TO FRONT LOBBY IN STABLE CONDITION.
[2020-02-19 11:59] VITALS: BP 124/52
--- NOTE | 2020-02-19 14:53 | NUR ---
Nutrition Screen Note RD Recommendation for Physician: -Recommend diabetic diet Plan of Care: RD following, monitoring for tolerance and adequacy Nutrition reason for involvement: Nutrition Risk Trigger Primary Diagnose(s): dyspnea, hypoxia, pneumonia PMH: diabetes, hypothyroidism, cholecystectomy Ht: 63 in Wt:160 lb (January 2020 admission) BMI: 28.3 kg/m2 IBW:[address] Assessment: (02/19/20) Chart reviewed. Labs and meds reviewed. Pt is an 84 year old female admitted with dyspnea, hypoxia, and pneumonia. Pt is primarily Wallisian speaking per chart. It is recorded pt has been consuming 75-100% of meals. Pt has not been weighed this admission and last recorded weight was 160 lbs from a previous admission in January 2020. Will continue to monitor Current Diet: cardiac diet Malnutrition Evaluation (02/19/20) Unable to speak to pt. Will re-evaluate at follow-up as appropriate. Diet Education Needs Assessment: RD is available for diet education as needed Nutrition Care Level: low Signed: Christelle Au, RD, LD
== END 2020-02-19 12:48 | disposition home or self-care (01) | DRG 177 ==
LOC: ER 17:25 → ERHOLD 17:36 → IMCU 02-16 20:05
PROVIDERS: ADMIT Internal Medicine; ATTEND Internal Medicine
DX: U07.1 COVID-19 (principal); J12.89 Other viral pneumonia; N17.9 Acute kidney failure, unspecified; R09.02 Hypoxemia; E86.0 Dehydration; I10 Essential (primary) hypertension; E11.9 Type 2 diabetes mellitus without complications; E78.5 Hyperlipidemia, unspecified; E03.9 Hypothyroidism, unspecified; Z90.49 Acquired absence of other specified parts of digestive tract; K29.60 Other gastritis without bleeding; T36.3X5A Adverse effect of macrolides, initial encounter; Z79.82 Long term (current) use of aspirin; Z79.84 Long term (current) use of oral hypoglycemic drugs
CPT/HCPCS: 36415; 71045; 80048; 80053; 80061; 80076; 81001; 82150; 82550; 82553; 82607; 82728; 82746; 82948; 83036; 83540; 83605; 83690; 83735; 83880; 84100; 84443; 84466; 84484; 85025; 85045; 87040; 87086; 87400; 93005; 96361; 96372; J0456; J0696; J1650; J1817; J7030; J7121; U0002

== ENCOUNTER 2022-09-23 12:01 | Emergency (ER) | payer MEDICARE ==
[~2022-09-23] VITALS: Ht 160 cm; Wt 72.6 kg
[~2022-09-23 12:01] MED LIST changes: +ACETAMINOPHEN325 M1 PO; +BACTRIM DS TAB1 EACH PO; +BROMPHENIR-PSE118 ML PO; +CARAFATE1 GM PO; +COLACE100 MG PO; +DICLOFENAC SODI75 MG PO; +ELIQUIS2.5 MG PO; +LEVOTHYROXINE25 MCG PO; +METFORMIN HCL750 MG PO; +MIRALAX17 GM PO; +PREDNISONE20 MG PO; +PRILOSEC10 M1 PO; +VITAMIN C1000 MG PO; +ZINC SULFATE220 MG PO; +ZOFRAN8 MG PO
[2022-09-23] MEDS ORDERED: ACETAMINOPHEN 325 MG TAB PO ONE (13:00)
[2022-09-23] MEDS ORDERED: METHOCARBAMOL 500 MG TAB PO ONE (13:00)
[2022-09-23] MEDS ORDERED: CELEBREX100 MG PO (14:33)
[2022-09-23] MEDS ORDERED: METHOCARBAMOL500 MG PO (14:33)
== END 2022-09-23 14:37 | disposition home or self-care (01) ==
LOC: ER 12:04
DX: M43.6 Torticollis (principal); I10 Essential (primary) hypertension; E11.9 Type 2 diabetes mellitus without complications; E78.5 Hyperlipidemia, unspecified; E03.9 Hypothyroidism, unspecified; E78.00 Pure hypercholesterolemia, unspecified
CPT/HCPCS: 72050; 99283